=== PATIENT | female | born 1995 | race Asian ===

== ENCOUNTER 2016-11-03 11:55 | Emergency (ER) | payer MEDICAID ==
[~2016-11-03] VITALS: Ht 165.1 cm; Wt 114.3 kg
[2016-11-03 12:17] VITALS: BP 114/75
[2016-11-03 12:39] LABS: APPEARANCE,URINE SLIGHTLY CLOUDY; KETONES,URINE NEGATIVE (NEGATIVE); LEUKOCYTE ESTERASE ,URINE NEGATIVE (NEGATIVE); NITRITE,URINE NEGATIVE (NEGATIVE); PH,URINE 8 (4.5-8.0); PROTEIN,URINE NEGATIVE (NEGATIVE); UROBILINOGEN,URINE NORMAL MG/DL (0.0-1.0)
[2016-11-03 12:47] LABS: AMORPHOUS SEDIMENT,UR MODERATE /LPF; BACTERIA,URINE FEW /HPF; SQUAMOUS EPITHELIAL CELL,UR FEW /LPF (NONE/OCC); WBC,URINE 0-2 /HPF (0 - 2)
--- NOTE | 2016-11-03 12:53 | Emergency Room Report ---
History of Present Illness General Chief Complaint: Vaginal Source: Patient Present Illness HPI 20-year-old female presents emergency department complaining of one week of spotting with increase in vaginal bleeding times one day. Patient reports that she has history of irregular menstrual cycles since onset of. The early teenage years. Patient states that some months her period can last up to 3 weeks in addition to not having a period for several months. Patient states that she had spotting for one week, 2 days of no spotting then onset of spotting times one week with increase in bleeding times one day. Patient also reports 2/ 10 lower abdominal cramping. in denies frequency, dysuria, fevers, chills, nausea, vomiting. Denies dizziness, imbalance, syncope, fatigue. reports intermittent progressive dull CASTELLANOS's 3/10 in severity x 1 month. Patient states she is sexually active she denies taking oral contraceptives Denies CP, Palpitations, LOC, AMS, dizziness, Changes in Vision, Sensation, paresthesias, or a sudden severe headache. Allergies: Coded Allergies: No Known Allergies (Unverified , 11/03/16) Patient History Past Medical History: see triage record Past Surgical History: none Pertinent Family History: none Last Menstrual Period: 10/12/16 Now: No - irregular cycle : 0 Para: 0 Immunizations: UTD Reviewed Nursing Documentation: PMH: Agreed, PSxH: Agreed Nursing Documentation-PMH Past Medical History: No Stated History Review of Systems All Other Systems: negative except mentioned in HPI Physical Exam Vital Signs Date Time Temp Pulse Resp B/P Pulse Ox O2 Delivery O2 Flow Rate FiO2 11/03/16 12:00 98.2 73 14 114/75 98 Room Air Sp02 EP Interpretation: reviewed, normal General Appearance: no apparent distress, alert, GCS 15, non-toxic Head: normocephalic, atraumatic Eyes: bilateral eye PERRL, bilateral eye normal inspection ENT: hearing grossly normal, normal pharynx, no angioedema, normal voice Neck: full range of motion, supple/symm/no masses Respiratory: chest non-tender, lungs clear, normal breath sounds, speaking full sentences Cardiovascular #1: regular rate, rhythm, no edema Gastrointestinal: normal bowel sounds, non tender, soft, no guarding, no rebound Rectal: deferred Genitourinary: normal inspection, no CVA tenderness Musculoskeletal: back normal, gait/station normal, normal range of motion, non- tender Neurologic: alert, oriented x3, responsive, motor strength/tone normal, sensory intact, speech normal Psychiatric: judgement/insight normal, memory normal, mood/affect normal Skin: normal color, no rash, warm/dry, well hydrated Lymphatic: no adenopathy Medical Decision Making PA Attestation Dr. uriostegui is my supervising Physician whom patient management has been discussed with. Diagnostic Impression: Primary Impression: Irregular menstruation, unspecified ER Course 20-year-old female presents emergency department complaining of one week of spotting with increase in vaginal bleeding times one day. Patient reports that she has history of irregular menstrual cycles since onset of. The early teenage years. Patient states that some months her period can last up to 3 weeks in addition to not having a period for several months. Patient states that she had spotting for one week, 2 days of no spotting then onset of spotting times one week with increase in bleeding times one day. Patient also reports 2/ 10 lower abdominal cramping. in denies frequency, dysuria, fevers, chills, nausea, vomiting. Denies dizziness, imbalance, syncope, fatigue. reports intermittent progressive dull CASTELLANOS's 3/10 in severity x 1 month. Patient states she is sexually active she denies taking oral contraceptives Ddx considered but are not limited to: Fibroid, ectopic , Fibroid, Spontaneous , DUB, metrorrhagia, menorrhagia, irregular cycles, anemia Vital signs: are WNL, pt. is afebrile Pelvic Exam: H&PE are most consistent with: Irregular menstrual cycles. ORDERS: -Urine hcg- Negative -UA: unremarkable other than RBC"s consistent with vaginal bleeding. ED INTERVENTIONS: None at this time. - D/w pt. proper follow up with OBGYN, also d/w pt. plan to start oral contraceptives to normalize hormones. pt. agrees and verbalizes understanding of proposed treatment plan. DISCHARGE: At this time pt. is stable for d/c to home. Will provide printed patient care instructions, and any necessary prescriptions. Care plan and follow up instructions have been discussed with the patient prior to discharge. Labs Test 11/03/16 12:15 Urine Color Pale yellow Urine Appearance Slightly cloudy Urine pH 8 (4.5-8.0) Urine Specific [place] 1.010 (1.005-1.035) Urine Protein Negative (NEGATIVE) Urine Glucose (UA) Negative (NEGATIVE) Urine Ketones Negative (NEGATIVE) Urine Occult Blood 3+ (NEGATIVE) Urine Nitrite Negative (NEGATIVE) Urine Bilirubin Negative (NEGATIVE) Urine Urobilinogen Normal MG/DL (0.0-1.0) Urine Leukocyte Esterase Negative (NEGATIVE) Urine RBC 2-4 /HPF (0 - 2) Urine WBC 0-2 /HPF (0 - 2) Urine Squamous Epithelial Cells Few /LPF (NONE/OCC) Urine Amorphous Sediment Moderate /LPF (NONE) Urine Bacteria Few /HPF (NONE) Urine HCG, Qualitative Negative Last Vital Signs Date Time Temp Pulse Resp B/P Pulse Ox O2 Delivery O2 Flow Rate FiO2 11/03/16 12:17 14 114/75 98 Room Air 11/03/16 12:00 98.2 73 Disposition: HOME, SELF-CARE Condition: Stable Scripts Ibuprofen* (MOTRIN*) 400 Mg Tablet 400 MG ORAL THREE TIMES A DAY, #20 TAB 0 Refills Prov: Karime Archer 11/03/16 Noreth A-Et Estra/Fe Fumarate (MICROGESTIN FE 1.5-30 TAB) 1 Each Tablet 1 EACH PO DAILY for 30 Days, #1 PACK 4 Refills Prov: Karime Archer 11/03/16 Referrals: [facility]ERR[facility] (PCP) Patient Instructions: Menstrual Dysfunction in [facility], Menstruation Additional Instructions: Take medications as directed. Follow up with OBGYN in 3-5 days Return sooner to ED if new symptoms occur, or current symptoms become worse. - Please note that this Emergency Department Report was dictated using ShoutOutmultiple tube winding machine operator technology software, occasionally this can lead to erroneous entry secondary to interpretation by the dictation equipment. Karime Archer November 03, 2016 12:53
[2016-11-03] MEDS ORDERED: MICROGESTIN FE1 EACH PO (13:08)
[2016-11-03] MEDS ORDERED: IBUPROFEN400 MG ORAL (13:08)
[2016-11-03 13:48] VITALS: BP 108/71
== END 2016-11-03 13:52 | disposition home or self-care (01) ==
LOC: EMR 12:42
DX: N92.6 Irregular menstruation, unspecified (principal); N93.9 Abnormal uterine and vaginal bleeding, unspecified
CPT/HCPCS: 81003; 81025; 99284

== ENCOUNTER 2018-05-30 06:38 | Emergency (ER) | payer MEDICAID ==
[~2018-05-30] VITALS: Ht 165.1 cm; Wt 104.3 kg
[~2018-05-30 06:38] MED LIST: IBUPROFEN400 MG ORAL; MICROGESTIN FE1 EACH PO
[2018-05-30] MEDS ORDERED: NKM (06:50)
--- NOTE | 2018-05-30 07:07 | Emergency Room Report ---
History of Present Illness General Chief Complaint: Abdominal Pain Source: Patient Present Illness HPI This is a 22-year-old female presented after increased epigastric pain. The patient reports having intermittent crampy epigastric pain associated with nausea. The patient reports having episodes of nonbloody emesis yesterday. The pain had not subsided and so presented patient presented to emergency department. She denies any fever. She denies any sick contacts. Patient states she smokes marijuana occasionally. She denies prior medical history. She denies being . She states she has irregular menses. Allergies: Coded Allergies: No Known Allergies (Unverified , 11/03/16) Patient History Last Menstrual Period: 04/17/2018 Now: No : 0 Para: 0 Reviewed Nursing Documentation: PMH: Agreed; PSxH: Agreed Nursing Documentation-PMH Past Medical History: No Stated History Review of Systems All Other Systems: negative except mentioned in HPI Physical Exam Vital Signs Date Time Temp Pulse Resp B/P (MAP) Pulse Ox O2 Delivery O2 Flow Rate FiO2 05/30/18 06:47 98.4 69 16 120/61 98 Room Air Sp02 EP Interpretation: reviewed, normal General Appearance: normal inspection, well appearing, no apparent distress, alert, GCS 15, obese Head: atraumatic ENT: normal ENT inspection, hearing grossly normal, normal voice Neck: normal inspection, full range of motion, supple, no bony tend Respiratory: normal inspection, lungs clear, normal breath sounds, no respiratory distress, no retraction, no wheezing Cardiovascular #1: regular rate, rhythm, no edema Gastrointestinal: normal inspection, normal bowel sounds, non tender, soft, no guarding, no hernia Genitourinary: no CVA tenderness Musculoskeletal: normal inspection, back normal, normal range of motion Neurologic: normal inspection, alert, oriented x3, responsive, oncology technician III-XII nml as tested, speech normal Psychiatric: normal inspection, judgement/insight normal, mood/affect normal Skin: normal inspection, normal color, no rash Medical Decision Making Diagnostic Impression: Primary Impression: Fatty liver Additional Impressions: Nonspecific abdominal pain Hyperglycemia ER Course Patient presented for abdominal pain. Differential diagnoses included ischemic bowel, appendicitis, perforated viscus, abdominal aortic aneurysm, inferior myocardial infarction, viral gastroenteritis Because of complexity of patient's case laboratory testing and imaging studies were ordered.Patient's laboratory testing showed the evidence of some the liver inflammation. Abdominal ultrasound showed fatty liver without evident gallstones. The patient was given medications for the discomfort with improvement in her symptoms. The patient does not appear to have any acute surgical issues at this time.The patient was noted to have some hyperglycemia and was advised to the avoid sugary foods and to recheck with primary care physician. The patient was given prescription for medications for symptom medical treatment.The patient is advised to follow up with primary care doctor in 1-2 days. Patient is advised to return if any worsening condition or if any changes in status that are concerning. This report is dictated with L2 import dispatcher software which may occasionally lead to discrepancies related to use of this software. Labs Test 05/30/18 07:24 05/30/18 07:30 Urine Color Yellow Urine Appearance Slightly cloudy Urine pH 5 (4.5-8.0) Urine Specific [place] 1.025 (1.005-1.035) Urine Protein 1+ (NEGATIVE) Urine Glucose (UA) Negative (NEGATIVE) Urine Ketones Negative (NEGATIVE) Urine Blood 3+ (NEGATIVE) Urine Nitrite Negative (NEGATIVE) Urine Bilirubin Negative (NEGATIVE) Urine Urobilinogen Normal MG/DL (0.0-1.0) Urine Leukocyte Esterase 1+ (NEGATIVE) Urine RBC 2-4 /HPF (0 - 2) Urine WBC 2-4 /HPF (0 - 2) Urine Squamous Epithelial Cells Few /LPF (NONE/OCC) Urine Bacteria Few /HPF (NONE) Urine Mucus Many /LPF (NONE/OCC) Urine HCG, Qualitative Negative (NEGATIVE) White Blood Count 8.1 K/UL (4.8-10.8) Red Blood Count 5.03 M/UL (4.20-5.40) Hemoglobin 14.0 G/DL (12.0-16.0) Hematocrit 42.4 % (37.0-47.0) Mean Corpuscular Volume 84 FL (80-99) Mean Corpuscular Hemoglobin 27.8 PG (27.0-31.0) Mean Corpuscular Hemoglobin Concent 32.9 G/DL (32.0-36.0) Red Cell Distribution Width 11.9 % (11.6-14.8) Platelet Count 311 K/UL (150-450) Mean Platelet Volume 7.4 FL (6.5-10.1) Neutrophils (%) (Auto) 52.9 % (45.0-75.0) Lymphocytes (%) (Auto) 36.6 % (20.0-45.0) Monocytes (%) (Auto) 6.2 % (1.0-10.0) Eosinophils (%) (Auto) 2.8 % (0.0-3.0) Basophils (%) (Auto) 1.5 % (0.0-2.0) Prothrombin Time 10.0 SEC (9.30-11.50) Prothromb Time International Ratio 0.9 (0.9-1.1) Activated Partial Thromboplast Time 31 SEC (23-33) Sodium Level 141 MMOL/L (136-145) Potassium Level 4.3 MMOL/L (3.5-5.1) Chloride Level 103 MMOL/L (98-107) Carbon Dioxide Level 24 MMOL/L (21-32) Anion Gap 14 mmol/L (5-15) Blood Urea Nitrogen 11 mg/dL (7-18) Creatinine 0.6 MG/DL (0.55-1.30) Estimat Glomerular Filtration Rate > 60 mL/min (>60) Glucose Level 138 MG/DL (74-106) Calcium Level 9.3 MG/DL (8.5-10.1) Total Bilirubin 0.5 MG/DL (0.2-1.0) Aspartate Amino Transf (AST/SGOT) 62 U/L (15-37) Alanine Aminotransferase (ALT/SGPT) 130 U/L (12-78) Alkaline Phosphatase 64 U/L (46-116) Total Protein 9.1 G/DL (6.4-8.2) Albumin 4.5 G/DL (3.4-5.0) Globulin 4.6 g/dL Albumin/Globulin Ratio 1.0 (1.0-2.7) Lipase 165 U/L (73-393) Last Vital Signs Date Time Temp Pulse Resp B/P (MAP) Pulse Ox O2 Delivery O2 Flow Rate FiO2 05/30/18 06:56 69 16 Room Air 05/30/18 06:47 98.4 120/61 98 Status: improved Disposition: HOME, SELF-CARE Condition: Stable Scripts Dicyclomine Hcl* (DICYCLOMINE HCL*) 10 Mg Capsule 10 MG PO QID, #30 CAP Prov: Manoj Cheng MD 05/30/18 Ondansetron (Zofran) 4 Mg Tablet 4 MG ORAL Q6H PRN for Nausea & Vomiting, #30 TAB 0 Refills Prov: Manoj Cheng MD 05/30/18 Manoj Cheng MD May 30, 2018 07:07
[2018-05-30] MEDS ORDERED: Lidocaine 2% Visc 15ml soln ORAL ONE (07:15)
[2018-05-30] MEDS ORDERED: Dicyclomine HCl 10mg/5ml oral soln ORAL ONE (07:15)
[2018-05-30] MEDS ORDERED: Mylanta II UD 30ml ORAL ONE (07:15)
[2018-05-30 07:40] LABS: APPEARANCE,URINE SLIGHTLY CLOUDY; BILIRUBIN, URINE NEGATIVE (NEGATIVE); GLUCOSE, URINE (UA) NEGATIVE (NEGATIVE); KETONES,URINE NEGATIVE (NEGATIVE); LEUKOCYTE ESTERASE ,URINE 1+ (NEGATIVE); NITRITE,URINE NEGATIVE (NEGATIVE); PH,URINE 5 (4.5-8.0); PROTEIN,URINE 1+ (NEGATIVE); UROBILINOGEN,URINE NORMAL MG/DL (0.0-1.0)
[2018-05-30 07:42] LABS: BASOPHILS % (AUTO) 1.5 % (0.0-2.0); EOSINOPHILS % (AUTO) 2.8 % (0.0-3.0); HEMATOCRIT 42.4 % (37.0-47.0); LYMPHOCYTES % (AUTO) 36.6 % (20.0-45.0); MEAN CORPUSCULAR VOLUME 84 FL (80-99); MONOCYTES % (AUTO) 6.2 % (1.0-10.0); NEUTROPHILS % (AUTO) 52.9 % (45.0-75.0); PLATELET COUNT 311 K/UL (150-450); RED BLOOD COUNT 5.03 M/UL (4.20-5.40); RED CELL DISTRIBUTION WIDTH 11.9 % (11.6-14.8); WHITE BLOOD COUNT 8.1 K/UL (4.8-10.8)
[2018-05-30 07:50] LABS: ANION GAP 14 mmol/L (5-15); BLOOD UREA NITROGEN 11 mg/dL (7-18); CALCIUM 9.3 MG/DL (8.5-10.1); CARBON DIOXIDE 24 MMOL/L (21-32); CHLORIDE 103 MMOL/L (98-107); CREATININE 0.6 MG/DL (0.55-1.30); POTASSIUM 4.3 MMOL/L (3.5-5.1); SODIUM 141 MMOL/L (136-145)
[2018-05-30 07:52] LABS: INR 0.9 (0.9-1.1)
[2018-05-30 07:55] LABS: COLOR,URINE YELLOW
[2018-05-30 08:01] VITALS: BP 110/55
[2018-05-30 08:13] LABS: ALANINE AMINOTRANSFERASE 130 U/L (12-78); ALBUMIN 4.5 G/DL (3.4-5.0); ALKALINE PHOSPHATASE 64 U/L (46-116); ASPARTATE AMINO TRANSFERASE 62 U/L (15-37); BILIRUBIN,TOTAL 0.5 MG/DL (0.2-1.0)
--- NOTE | 2018-05-30 08:53 | Diagnostic Imaging Report ---
Indication: Epigastric and abdominal pain, vomiting Technique: Lizarraga-scale and duplex images of the upper abdomen were obtained Comparison: none Findings: Gallbladder is unremarkable, without stones, wall thickening, nor pericholecystic fluid. It is nondistended Sonographic Velazco's sign is negative. Common bile duct measures 3 mm in diameter. No intrahepatic biliary ductal dilatation. Liver demonstrates diffusely increased echogenicity, consistent with diffuse hepatocellular disease, most likely fatty change. Portal vein and hepatic veins are patent. Pancreas is unremarkable. Spleen is unremarkable. Left kidney measures 10.7 cm in length. Right kidney measures 11.4 cm length. Both kidneys demonstrate normal echogenicity. There is no hydronephrosis. No focal abnormality . Abdominal aorta is partially obscured by bowel gas, visualized portions are non-aneurysmal . Impression: Liver demonstrates diffusely increased echogenicity, consistent with diffuse hepatocellular disease, most likely fatty change. Negative for gallstones or dilated ducts Note incomplete visualization of the abdominal aorta
[2018-05-30] MEDS ORDERED: DICYCLOMINE HCL10 MG PO (08:58)
[2018-05-30] MEDS ORDERED: ZOFRAN4 MG ORAL (08:58)
[2018-05-30 09:06] VITALS: BP 110/55
== END 2018-05-30 09:18 | disposition home or self-care (01) ==
LOC: EMR 07:40
DX: K76.0 Fatty (change of) liver, not elsewhere classified (principal); R10.13 Epigastric pain; R73.9 Hyperglycemia, unspecified
CPT/HCPCS: 36415; 76700; 80053; 81003; 81025; 83690; 85025; 85610; 85730; 99284

== ENCOUNTER 2018-12-28 09:51 | Emergency (ER) | payer MEDICAID ==
[~2018-12-28] VITALS: Ht 165.1 cm; Wt 83.9 kg
[~2018-12-28 09:51] MED LIST changes: +DICYCLOMINE HCL10 MG PO; +NKM; +ZOFRAN4 MG ORAL
[2018-12-28 10:01] VITALS: BP 128/68
--- NOTE | 2018-12-28 10:03 | NUR ---
ED Nurse Note: Patient walked in to ER c/o Rt jaw pain / since she got wisdom teeth pulling out 3 days ago. Rt jaw swelling noted. pt c/o difficulty swallowing and even opening mouth due to pain and swelling. pt aao x4 and ambulatory. skin clean and intact. calm and cooperative.
[2018-12-28] MEDS ORDERED: Dexamethasone 4mg/ml vial IM ONE (10:15)
[2018-12-28] MEDS ORDERED: Augmentin 875mg Tab ORAL ONE (10:15)
[2018-12-28] MEDS ORDERED: Tylenol #3 tab (300mg/30mg) ORAL ONE (10:15)
[2018-12-28] MEDS ORDERED: AUGMENTIN 875-1 EAC1 ORAL (10:29)
[2018-12-28] MEDS ORDERED: ACETAMINOPHEN-1 EAC1 ORAL (10:29)
--- NOTE | 2018-12-28 10:39 | Emergency Room Report ---
History of Present Illness General Chief Complaint: Sore Throat Source: Patient Present Illness HPI 23-year-old female presents to ED c/o throat pain. states that 3 days ago she had wisdom teeth extraction at [facility]. states that since shes been experiencing facial swelling and pain. states she was prescribed motrin without relief. pain is throbbing 8/10 nonradating. denies fevers or chills. denies neck stiffness. no other aggravating or relieving factors. denies any other associated symptoms. Allergies: Coded Allergies: AVOCADO (Verified Allergy, Unknown, 12/28/18) MELON (Verified Allergy, Unknown, 12/28/18) Patient History Past Medical History: none Past Surgical History: other - [place] tooth extraction Pertinent Family History: none Social History: Denies: smoking, alcohol use, drug use Last Menstrual Period: 2 months Now: No Immunizations: UTD Reviewed Nursing Documentation: PMH: Agreed; PSxH: Agreed Nursing Documentation-PMH Past Medical History: No Stated History Review of Systems All Other Systems: negative except mentioned in HPI Physical Exam Vital Signs Date Time Temp Pulse Resp B/P (MAP) Pulse Ox O2 Delivery O2 Flow Rate FiO2 12/28/18 09:52 99.0 91 20 128/68 (88) 98 Room Air Sp02 EP Interpretation: reviewed, normal General Appearance: no apparent distress, alert, GCS 15, non-toxic, obese Head: normocephalic, other Eyes: bilateral eye normal inspection, bilateral eye PERRL ENT: hearing grossly normal, normal pharynx, no angioedema, normal voice, other - facial swelling Neck: supple, no meningismus, other - no stridor Respiratory: normal inspection Cardiovascular #1: normal inspection Gastrointestinal: normal inspection Rectal: deferred Genitourinary: no CVA tenderness Musculoskeletal: normal inspection Neurologic: alert, oriented x3, responsive, motor strength/tone normal, sensory intact, speech normal Psychiatric: normal inspection Skin: normal color Lymphatic: normal inspection Medical Decision Making Diagnostic Impression: Primary Impression: S/P wisdom tooth extraction Additional Impression: Pain, dental ER Course 23 yo F presents c/o jaw pain, swelling. s/p tooth extraction Cracked tooth, dental abscess, cavity Patient placed on stretcher. After initial history, physical exam reveals an obese female in mild distress. Reasonable facial swelling. No stridor. No fluctuance or discharge. No nuchal rigidity. Afebrile, vitals stable. Discussed findings with patient. States that it is common to see swelling after wisdom tooth extraction. States that the ibuprofen is not helping. Will discharge with antibiotics and Tylenol No. 3. Recommend that she follow-up with dental clinic where she had the procedure Given Decadron, pain meds and Augmentin here. Diagnosis-dental pain, s/p wisdom tooth extraction Stable and discharged to home prescription for tylenol #3, and augmentin. Instructed to see dentist as a walk-in this week. Return to ED if symptoms recur or worse Last Vital Signs Date Time Temp Pulse Resp B/P (MAP) Pulse Ox O2 Delivery O2 Flow Rate FiO2 12/28/18 10:01 99.0 80 20 128/68 98 Room Air Status: improved Disposition: HOME, SELF-CARE Condition: Stable Scripts Amoxicillin/Potassium Clav 875-125* (AUGMENTIN 875-125 TABLET*) 1 Each Tablet 1 TAB ORAL TWICE A DAY, #14 TAB Prov: Kendrick Arteaga MD 12/28/18 Acetaminophen With Codeine (T#3) (TYLENOL #3 TAB*) Y Tab 1 TAB ORAL Q8H PRN for For Pain, #12 TAB Prov: Kendrick Arteaga MD 12/28/18 Referrals: NON PHYSICIAN (PCP) [facility] INFO: New Patient Screening: Tue- 8am-1pm Tue- 9am -5pm and Tue 2pm-5pm [facility](age 2-12) - Orthodontic Clinic - Hours: Tue,Tue,, 8:15am and 1pm (new patient screening), Tu. 1pm. Emergency clinic Tuesday - Tuesday 8:30am and 1pm, Tues. 1pm. *Call to check if clinic is open; No appointment necessary for the first visit ( new patient screening), Arrive 15-30 minutes early as it is first come, first serve. Patient Instructions: Dental Extraction, Care After, Auii-mi-Afhi Kendrick Arteaga MD Dec 28, 2018 10:39
--- NOTE | 2018-12-28 10:51 | NUR ---
ED Nurse Note: pt sleeping without acute distress in bed. boyfriend at bedside.
[2018-12-28 10:58] VITALS: BP 128/68
--- NOTE | 2018-12-28 10:59 | NUR ---
ER DISCHARGE NOTE: Patient is cleared to be discharged per ERMD after pt pain level improved, pt is aox4, on room air, with stable vital signs. pt was given dc and prescription instructions, pt was able to verbalize understanding, pt id band removed. pt is able to ambulate with steady gait. pt took all belongings.
== END 2018-12-28 11:00 | disposition home or self-care (01) ==
LOC: EMR 10:12
DX: K08.89 Other specified disorders of teeth and supporting structures (principal); K08.409 Partial loss of teeth, unspecified cause, unspecified class
CPT/HCPCS: 96372; 99283; J1100

== ENCOUNTER 2019-06-29 19:41 | Emergency (ER) | payer MEDICAID ==
[~2019-06-29] VITALS: Ht 165.1 cm; Wt 106.1 kg
[~2019-06-29 19:41] MED LIST changes: +ACETAMINOPHEN-1 EAC1 ORAL; +AUGMENTIN 875-1 EAC1 ORAL
[2019-06-29 20:30] VITALS: BP 129/72
--- NOTE | 2019-06-29 20:30 | NUR ---
ED Nurse Note: Pt walked into ED from home for c/o headache and nausea onset earlier this morning. Pt denies any head injury or fall. Pt states head pain is sharp and pressure like in nature. Pt is aaox4, no cardiac or respiratory distress noted. Will continue to monitor.
[2019-06-29] MEDS ORDERED: ZOFRAN4 M1 ORAL (21:02)
[2019-06-29] MEDS ORDERED: IBUPROFEN600 MG ORAL (21:02)
[2019-06-29] MEDS ORDERED: Ketorolac 60mg Inj IM ONE (21:15)
[2019-06-29 21:20] VITALS: BP 129/72
--- NOTE | 2019-06-29 21:20 | NUR ---
ER DISCHARGE NOTE: Patient is cleared to be discharged per ERMD, pt is aox4, on room air, with stable vital signs. pt was given dc and prescription instructions, pt was able to verbalize understanding, pt id band removed. pt is able to ambulate with steady gait. pt took all belongings.
--- NOTE | 2019-06-29 21:55 | Emergency Room Report ---
History of Present Illness General Chief Complaint: Headache Source: Patient Present Illness HPI Patient presents with complaints of headache body ache Bloating sensation patient reports she had diarrhea today as well Denies any neck pain or photophobia Patient reports some mild chills but denies any obvious fever denies any focal weakness denies any visual changes headache is fairly diffuse and started this morning Denies any chest pain or shortness of breath denies any dysuria frequency denies any recent travel Allergies: Coded Allergies: AVOCADO (Verified Allergy, Unknown, 12/28/18) MELON (Verified Allergy, Unknown, 12/28/18) Patient History Past Medical History: see triage record Last Menstrual Period: 05/22/19 Now: No Reviewed Nursing Documentation: PMH: Agreed; PSxH: Agreed Nursing Documentation-PMH Past Medical History: No Stated History Review of Systems All Other Systems: negative except mentioned in HPI Physical Exam Vital Signs Date Time Temp Pulse Resp B/P (MAP) Pulse Ox O2 Delivery O2 Flow Rate FiO2 06/29/19 19:59 98.2 79 14 129/72 (91) 98 Room Air Sp02 EP Interpretation: reviewed, normal General Appearance: well appearing, no apparent distress Head: normocephalic, atraumatic Eyes: bilateral eye PERRL, bilateral eye EOMI ENT: hearing grossly normal, normal pharynx, TMs + canals normal, uvula midline Neck: full range of motion, supple, no meningismus, no bony tend Respiratory: lungs clear, normal breath sounds, no rhonchi, no respiratory distress, no retraction, no accessory muscle use Cardiovascular #1: normal peripheral pulses, regular rate, rhythm, no edema, no gallop, no JVD, no murmur Gastrointestinal: normal bowel sounds, non tender, soft, no mass, no organomegaly, non-distended, no guarding, no hernia, no pulsatile mass, no rebound Genitourinary: no CVA tenderness Musculoskeletal: normal inspection, back normal Neurologic: motor strength/tone normal, statuary painter III-XII nml as tested, oriented x3 , sensory intact, responsive Psychiatric: mood/affect normal Skin: no rash Lymphatic: normal inspection, no adenopathy Medical Decision Making Diagnostic Impression: Primary Impression: Headache Additional Impression: flu symptoms ER Course Multiple differentials including but not limited to neurological, neurosurgical , infectious such as pneumonia, influenza, or meningitis also entertained patient appears well does not appear septic or toxic Soft benign abdominal exam on reexamination Patient provided with symptomatic medication here and will have initial conservative outpatient trial Last Vital Signs Date Time Temp Pulse Resp B/P (MAP) Pulse Ox O2 Delivery O2 Flow Rate FiO2 06/29/19 20:30 98.2 79 14 129/72 98 Room Air Status: improved Disposition: HOME, SELF-CARE Condition: Improved Scripts Ibuprofen* (MOTRIN*) 600 Mg Tablet 600 MG ORAL Q8H PRN for For Pain, #20 TAB 0 Refills Prov: Aldo Goncalves DO 06/29/19 Ondansetron (Zofran) 4 Mg Tablet 4 MG ORAL Q6H PRN for Nausea & Vomiting, #12 TAB Prov: Aldo Goncalves DO 06/29/19 Referrals: NON PHYSICIAN (PCP) [facility] Patient Instructions: Influenza, Adult, [id number], General Headache Without Cause Additional Instructions: Patient is provided with the discharge instructions notified to follow up with primary doctor in the next 2-3 days otherwise return to the er with any worsening symptoms. Please note that this report is being documented using TinderBox technology. This can lead to erroneous entry secondary to incorrect interpretation by the dictating instrument. Aldo Goncalves DO Jun 29, 2019 21:55
== END 2019-06-29 21:20 | disposition home or self-care (01) ==
LOC: EMR 20:45
DX: R51 Headache (principal); J11.1 Influenza due to unidentified influenza virus with other respiratory manifestations; Z91.018 Allergy to other foods
CPT/HCPCS: 96372; Z7502; 99283

== ENCOUNTER 2019-08-30 17:55 | Emergency (ER) | payer MEDICAID ==
[~2019-08-30] VITALS: Ht 165.1 cm; Wt 95.3 kg
[~2019-08-30 17:55] MED LIST changes: +IBUPROFEN600 MG ORAL; +ZOFRAN4 M1 ORAL
[2019-08-30 18:04] VITALS: BP 118/70
[2019-08-30 19:09] LABS: APPEARANCE,URINE SLIGHTLY CLOUDY; BILIRUBIN, URINE 2+ (NEGATIVE); COLOR,URINE BROWN; GLUCOSE, URINE (UA) NEGATIVE (NEGATIVE); KETONES,URINE NEGATIVE (NEGATIVE); LEUKOCYTE ESTERASE ,URINE 1+ (NEGATIVE); NITRITE,URINE POSITIVE (NEGATIVE); PH,URINE 6 (4.5-8.0); PROTEIN,URINE 1+ (NEGATIVE); UROBILINOGEN,URINE 4 MG/DL (0.0-1.0)
--- NOTE | 2019-08-30 19:15 | Emergency Room Report ---
History of Present Illness General Chief Complaint: Female Urogenital Problems Source: Patient Present Illness HPI 23-year-old female presents to the emergency department complaining of 7 out of 10 severity dysuria, bladder fullness, hematuria that is been progressive x1 week. Patient reports that this morning her doctor called in a prescription for Bactrim and Pyridium. Patient presents because she is having extreme burning with urination and has difficulty urinating. She reports she recently took a test and was negative. She denies fevers, chills, low back pain, nausea, vomiting, abdominal tenderness, constipation or diarrhea. Patient reports cloudy bloody urine with foul strong odor. She denies vaginal discharge or itching. Patient denies rashes. COVID-19 risk:Contact w/high r: No COVID-19 risk:Travel to affect: No Has patient experienced juarez: No Allergies: Coded Allergies: AVOCADO (Verified Allergy, Unknown, 12/28/18) MELON (Verified Allergy, Unknown, 12/28/18) Patient History Past Medical History: see triage record Past Surgical History: none Pertinent Family History: none Last Menstrual Period: Jul 13, 2019 Now: No - test negative 2 days ago : 0 Para: 0 Reviewed Nursing Documentation: PMH: Agreed; PSxH: Agreed Nursing Documentation-PMH Past Medical History: No Stated History Review of Systems All Other Systems: negative except mentioned in HPI Physical Exam Vital Signs Date Time Temp Pulse Resp B/P (MAP) Pulse Ox O2 Delivery O2 Flow Rate FiO2 08/30/19 17:58 97.9 83 15 121/66 (84) 94 Room Air Sp02 EP Interpretation: reviewed, normal General Appearance: no apparent distress, alert, GCS 15, non-toxic Head: normocephalic, atraumatic Eyes: bilateral eye normal inspection, bilateral eye PERRL ENT: hearing grossly normal, normal voice Neck: full range of motion Respiratory: lungs clear, normal breath sounds, speaking full sentences Cardiovascular #1: regular rate, rhythm Gastrointestinal: normal bowel sounds, non tender, soft, non-distended, no guarding Genitourinary: normal inspection, no CVA tenderness Musculoskeletal: back normal, normal range of motion, gait/station normal, non- tender Neurologic: alert, motor strength/tone normal, oriented x3, sensory intact, responsive, speech normal Psychiatric: judgement/insight normal Skin: no rash, normal color, normal inspection Lymphatic: no adenopathy Medical Decision Making PA Attestation Dr. Osborn is my supervising Physician whom patient management has been discussed with. Diagnostic Impression: Primary Impression: UTI (urinary tract infection) Qualified Codes: N30.01 - Acute cystitis with hematuria ER Course 23-year-old female presents to the emergency department complaining of 7 out of 10 severity dysuria, bladder fullness, hematuria that is been progressive x1 week. Patient reports that this morning her doctor called in a prescription for Bactrim and Pyridium. Patient presents because she is having extreme burning with urination and has difficulty urinating. She reports she recently took a test and was negative. She denies fevers, chills, low back pain, nausea, vomiting, abdominal tenderness, constipation or diarrhea. Patient reports cloudy bloody urine with foul strong odor. She denies vaginal discharge or itching. Patient denies rashes. Ddx considered but are not limited to UTi , Pyelo, STI, Stone, Cystitis Vital signs: are WNL, pt. is afebrile H&PE are most consistent with UTI ORDERS: - UA labs are attached : Positive _Nitrite, moderate bacteria ED INTERVENTIONS: None required at this time. PT. with bladder spasm, straight cath and 650cc urine was eliminated. Pt. will be sent home with straight cath and instructed on its use, in the event that she continues to have difficulty emptying her bladder completely. Pt. is supposed to follow up with Urologist and her PCP. DISCHARGE: At this time pt. is stable for d/c to home. Will provide printed patient care instructions, and any necessary prescriptions. Care plan and follow up instructions have been discussed with the patient prior to discharge. Labs Test 08/30/19 18:50 Urine Color Brown Urine Appearance Slightly cloudy Urine pH 6 (4.5-8.0) Urine Specific [place] 1.010 (1.005-1.035) Urine Protein 1+ (NEGATIVE) Urine Glucose (UA) Negative (NEGATIVE) Urine Ketones Negative (NEGATIVE) Urine Blood 5+ (NEGATIVE) Urine Nitrite Positive (NEGATIVE) Urine Bilirubin 2+ (NEGATIVE) Urine Ictotest Negative (NEGATIVE) Urine Urobilinogen 4 MG/DL (0.0-1.0) Urine Leukocyte Esterase 1+ (NEGATIVE) Urine RBC Tntc /HPF (0 - 2) Urine WBC 5-10 /HPF (0 - 2) Urine Squamous Epithelial Cells Moderate /LPF (NONE/OCC) Urine Bacteria Moderate /HPF (NONE) Urine HCG, Qualitative Negative (NEGATIVE) Last Vital Signs Date Time Temp Pulse Resp B/P (MAP) Pulse Ox O2 Delivery O2 Flow Rate FiO2 08/30/19 18:04 97.9 86 15 118/70 96 Room Air Disposition: HOME, SELF-CARE Condition: Stable Scripts Nitrofurantoin Monohyd/M-Cryst* (MACROBID 100 MG*) 100 Mg Capsule 100 MG ORAL EVERY 12 HOURS for 7 Days, #14 CAP Prov: Karime Archer 08/30/19 Referrals: NON PHYSICIAN (PCP) Patient Instructions: Urinary Tract Infection Additional Instructions: Take medications as directed. Follow up with a Primary Care Provider and a UROLOGIST in 3-5 days, even if your symptoms have resolved. Return sooner to ED if new symptoms occur, or current symptoms become worse. - Please note that this Emergency Department Report was dictated using [email or web address] childhood assistant technology software, occasionally this can lead to erroneous entry secondary to interpretation by the dictation equipment. Karime Archer Aug 30, 2019 19:15
[2019-08-30] MEDS ORDERED: NITROFURANTOIN100 M2 ORAL (19:24)
[2019-08-30 20:15] VITALS: BP 118/70
== END 2019-08-30 20:15 | disposition home or self-care (01) ==
LOC: EMR 18:48
DX: N30.01 Acute cystitis with hematuria (principal); Z91.018 Allergy to other foods
CPT/HCPCS: 81003; 81025; 87086; Z7502; 99283

== ENCOUNTER 2019-10-21 09:43 | Emergency (ER) | payer MEDICAID ==
[~2019-10-21] VITALS: Ht 165.1 cm; Wt 104.3 kg
[~2019-10-21 09:43] MED LIST changes: +NITROFURANTOIN100 M2 ORAL
--- NOTE | 2019-10-21 09:57 | NUR ---
ED Nurse Note: Pt walked into ED w/ R knee pain for 1 month. 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 No swelling, redness, SOB. Pt is alert and orientedx4,ambulatory.
[2019-10-21 09:59] VITALS: BP 118/75
--- NOTE | 2019-10-21 10:34 | Emergency Room Report ---
History of Present Illness General Chief Complaint: Pain Source: Patient Present Illness HPI Patient is a 23-year-old female presents after increased right-sided knee pain. She reports of increased pain with ambulation especially when she is walking down stairs. Denies any locking. Reports having some increased weakness. Denies any trauma. Reports lifting heavy objects at work. Denies any knee swelling or new discomfort. No recent trauma.Patient denies any fever. Denies being . Allergies: Coded Allergies: AVOCADO (Verified Allergy, Unknown, 12/28/18) MELON (Verified Allergy, Unknown, 12/28/18) COVID-19 Screening Contact w/high risk pt: No Recent Travel to affected area: No Experienced COVID-19 symptoms?: No Patient History Past Medical History: see triage record Last Menstrual Period: 09/21/19 Now: No Reviewed Nursing Documentation: PMH: Agreed; PSxH: Agreed Nursing Documentation-PMH Past Medical History: No Stated History Review of Systems All Other Systems: negative except mentioned in HPI Physical Exam Vital Signs Date Time Temp Pulse Resp B/P (MAP) Pulse Ox O2 Delivery O2 Flow Rate FiO2 10/21/19 09:47 98.1 72 16 115/72 (86) 97 Room Air General Appearance: well appearing, no apparent distress, alert, GCS 15, obese Head: normocephalic, atraumatic ENT: hearing grossly normal, normal voice Neck: full range of motion, supple Respiratory: no respiratory distress, speaking full sentences Musculoskeletal: no calf tenderness, other - Right knee with some slight laxity on medial stress without any pain. No palpable tenderness or erythema was noted. No meniscal tenderness was elicited Neurologic: alert, motor strength/tone normal, squeegee tender III-XII nml as tested, oriented x3, normal gait Psychiatric: mood/affect normal Skin: no rash Medical Decision Making Diagnostic Impression: Primary Impression: Knee pain ER Course Patient presented for right knee pain. Differential diagnosis include was not limited to knee sprain, ligamentous laxity, patellofemoral syndrome among others. Patient has a benign exam and does not appear to require any imaging or laboratory testing at this time. Patient appears to have some evidence of some slight medial laxity to medial collateral ligament. Does not appear to have any acute trauma or any other recent injury. Patient be treated with nonsteroidal anti-inflammatory medication. Patient was advised to follow-up with primary care physician for physical therapy and orthopedic referral as needed. The patient is advised to follow up with primary care doctor in 1-2 days. Patient is advised to return if any worsening condition or if any changes in status that are concerning. This report is dictated with [employer] web press roll tender software which may occasionally lead to discrepancies related to use of this software. Last Vital Signs Date Time Temp Pulse Resp B/P (MAP) Pulse Ox O2 Delivery O2 Flow Rate FiO2 10/21/19 09:59 98.1 76 17 118/75 99 Room Air Status: improved Disposition: HOME, SELF-CARE Condition: Stable Scripts Ibuprofen* (MOTRIN*) 600 Mg Tablet 600 MG ORAL Q8H PRN for FOR PAIN, #30 TAB 0 Refills Prov: Manoj Cehng MD 10/21/19 Referrals: NON PHYSICIAN (PCP) Manoj Cheng MD October 21, 2019 10:34
[2019-10-21] MEDS ORDERED: IBUPROFEN600 M1 ORAL (10:36)
[2019-10-21 11:56] VITALS: BP 120/79
--- NOTE | 2019-10-21 11:56 | NUR ---
ER DISCHARGE NOTE: Patient is cleared to be discharged per ERMD, pt is aox4, on room air, with stable vital signs. pt was given dc and prescription instructions, pt was able to verbalize understanding, pt id band removed. pt is able to ambulate with steady gait. pt took all belongings. Pt educated on knee care.
== END 2019-10-21 11:57 | disposition home or self-care (01) ==
LOC: EMR 10:11
DX: M25.561 Pain in right knee (principal); Z91.018 Allergy to other foods
CPT/HCPCS: 81025; Z7502; 99282